=== PATIENT | male | born 1955 | race Native Hawaiian/Other Pacific Islander ===

== ENCOUNTER 2023-01-15 12:25 | Emergency (ER) | payer OTHER ==
[~2023-01-15] VITALS: Ht 180.3 cm; Wt 124.7 kg
[2023-01-15 12:58] LABS: PLATELET COUNT 148 K/uL (142-355)
[2023-01-15 13:16] LABS: SODIUM 134 mmol/L (136-145)
[2023-01-15 17:23] VITALS: BP 146/92; TEMP 97.1
== END 2023-01-15 17:23 | disposition home or self-care (01) ==
LOC: ED 12:25
PROVIDERS: Emergency Medicine Emergency Medical Services
DX: I25.10 Atherosclerotic heart disease of native coronary artery without angina pectoris (principal)
CPT/HCPCS: 80053; 83735; 83880; 84484; 85027; 85610; 93005; 96360; 96361; 99284